=== PATIENT | female | born 1950 | race Caucasian/White ===

== ENCOUNTER → 2016-06-16 | Outpatient (CLI) | payer OTHER ==
[~2016-06-16] MED LIST: ALPRAZOLAM; ASPIRIN; ATENOLOL; CLARITIN10 MG; COUMADIN; FLAX SEED OIL1000 MG; FLONASE16 GM; HCTZ; KCL; LASIX; LEXAPRO; NORVASC; POSTURE600 MG; PRILOSEC; ZETIA
[2016-06-16 12:22] LABS: INR 2.2; PROTHROMBIN TIME (PATIENT) 23.6 SECONDS (9.6-11.5)
== END | disposition home or self-care (01) ==
LOC: CLAB 11:14
PROVIDERS: Internal Medicine Cardiovascular Disease
DX: Z48.812 Encounter for surgical aftercare following surgery on the circulatory system (principal); Z95.2 Presence of prosthetic heart valve
CPT/HCPCS: 36415; 85610

== ENCOUNTER → 2016-06-30 | Outpatient (CLI) | payer OTHER ==
[2016-06-30 11:40] LABS: PROTHROMBIN TIME (PATIENT) 58.9 SECONDS (9.6-11.5)
[2016-06-30 11:41] LABS: INR 5.3
== END | disposition home or self-care (01) ==
LOC: CLAB 10:00
PROVIDERS: Internal Medicine Cardiovascular Disease
DX: Z51.81 Encounter for therapeutic drug level monitoring (principal); Z95.2 Presence of prosthetic heart valve; Z79.01 Long term (current) use of anticoagulants
CPT/HCPCS: 36415; 85610

== ENCOUNTER → 2016-07-10 | Outpatient (CLI) | payer OTHER ==
[2016-07-10 11:25] LABS: INR 2.9; PROTHROMBIN TIME (PATIENT) 32.1 SECONDS (9.6-11.5)
== END | disposition home or self-care (01) ==
LOC: CLAB 10:34
PROVIDERS: Internal Medicine Cardiovascular Disease
DX: Z48.812 Encounter for surgical aftercare following surgery on the circulatory system (principal); Z95.2 Presence of prosthetic heart valve
CPT/HCPCS: 36415; 85610

== ENCOUNTER → 2016-08-11 | Outpatient (CLI) | payer OTHER ==
[2016-08-11 10:09] LABS: PROTHROMBIN TIME (PATIENT) 44.4 SECONDS (9.6-11.5)
== END | disposition home or self-care (01) ==
LOC: CLAB 09:38
PROVIDERS: Internal Medicine Cardiovascular Disease
DX: Z48.812 Encounter for surgical aftercare following surgery on the circulatory system (principal); Z95.2 Presence of prosthetic heart valve
CPT/HCPCS: 36415; 85610

== ENCOUNTER → 2016-08-21 | Outpatient (CLI) | payer OTHER ==
[2016-08-21 10:12] LABS: INR 3.8; PROTHROMBIN TIME (PATIENT) 42.2 SECONDS (9.6-11.5)
== END | disposition home or self-care (01) ==
LOC: CLAB 09:30
PROVIDERS: Internal Medicine Cardiovascular Disease
DX: Z48.812 Encounter for surgical aftercare following surgery on the circulatory system (principal); Z95.2 Presence of prosthetic heart valve
CPT/HCPCS: 36415; 85610

== ENCOUNTER → 2016-09-07 | Outpatient (CLI) | payer OTHER ==
[2016-09-07 10:33] LABS: INR 3.7; PROTHROMBIN TIME (PATIENT) 41.2 SECONDS (9.6-11.5)
== END | disposition home or self-care (01) ==
LOC: CLAB 09:57
PROVIDERS: Internal Medicine Cardiovascular Disease
DX: Z51.81 Encounter for therapeutic drug level monitoring (principal); Z95.2 Presence of prosthetic heart valve; Z79.01 Long term (current) use of anticoagulants
CPT/HCPCS: 36415; 85610

== ENCOUNTER → 2016-09-14 | Outpatient (CLI) | payer OTHER ==
[2016-09-14 09:52] LABS: INR 3.4
== END | disposition home or self-care (01) ==
LOC: CLAB 09:08
PROVIDERS: Internal Medicine Cardiovascular Disease
DX: Z51.81 Encounter for therapeutic drug level monitoring (principal); Z95.2 Presence of prosthetic heart valve; Z79.01 Long term (current) use of anticoagulants
CPT/HCPCS: 36415; 85610

== ENCOUNTER → 2016-09-28 | Outpatient (CLI) | payer OTHER ==
[2016-09-28 11:48] LABS: INR 2.9; PROTHROMBIN TIME (PATIENT) 31.5 SECONDS (10.0-11.7)
== END | disposition home or self-care (01) ==
LOC: CLAB 10:26
PROVIDERS: Internal Medicine Cardiovascular Disease
DX: Z51.81 Encounter for therapeutic drug level monitoring (principal); Z95.2 Presence of prosthetic heart valve; Z79.01 Long term (current) use of anticoagulants
CPT/HCPCS: 36415; 85610

== ENCOUNTER → 2016-10-12 | Outpatient (CLI) | payer OTHER ==
[2016-10-12 10:35] LABS: INR 3.1; PROTHROMBIN TIME (PATIENT) 33.4 SECONDS (10.0-11.7)
== END | disposition home or self-care (01) ==
LOC: CLAB 10:00
PROVIDERS: Internal Medicine Cardiovascular Disease
DX: Z51.81 Encounter for therapeutic drug level monitoring (principal); Z95.2 Presence of prosthetic heart valve; Z79.01 Long term (current) use of anticoagulants
CPT/HCPCS: 36415; 85610

== ENCOUNTER → 2016-11-10 | Outpatient (CLI) | payer MEDICARE, OTHER ==
[2016-11-10 10:42] LABS: INR 2.4; PROTHROMBIN TIME (PATIENT) 26.5 SECONDS (10.0-11.7)
== END | disposition home or self-care (01) ==
LOC: CLAB 10:06
PROVIDERS: Internal Medicine Cardiovascular Disease
DX: Z51.81 Encounter for therapeutic drug level monitoring (principal); Z79.01 Long term (current) use of anticoagulants; Z95.2 Presence of prosthetic heart valve
CPT/HCPCS: 36415; 85610

== ENCOUNTER → 2016-11-17 | Outpatient (CLI) | payer MEDICARE, OTHER ==
[2016-11-17 12:25] LABS: INR 2.7; PROTHROMBIN TIME (PATIENT) 29.7 SECONDS (10.0-11.7)
== END | disposition home or self-care (01) ==
LOC: CLAB 11:15
PROVIDERS: Internal Medicine Cardiovascular Disease
DX: Z51.81 Encounter for therapeutic drug level monitoring (principal); Z95.2 Presence of prosthetic heart valve; Z79.01 Long term (current) use of anticoagulants
CPT/HCPCS: 36415; 85610

== ENCOUNTER → 2016-12-01 | Outpatient (CLI) | payer MEDICARE, OTHER ==
[2016-12-01 11:01] LABS: INR 2.3; PROTHROMBIN TIME (PATIENT) 25.4 SECONDS (10.0-11.7)
== END | disposition home or self-care (01) ==
LOC: CLAB 10:08
PROVIDERS: Internal Medicine Cardiovascular Disease
DX: Z51.81 Encounter for therapeutic drug level monitoring (principal); Z95.2 Presence of prosthetic heart valve
CPT/HCPCS: 36415; 85610

== ENCOUNTER → 2016-12-07 | Outpatient (CLI) | payer MEDICARE, OTHER ==
[2016-12-07 10:39] LABS: INR 3.7
[2016-12-07 10:40] LABS: PROTHROMBIN TIME (PATIENT) 40.7 SECONDS (10.0-11.7)
== END | disposition home or self-care (01) ==
LOC: CLAB 09:49
PROVIDERS: Internal Medicine Cardiovascular Disease
DX: Z51.81 Encounter for therapeutic drug level monitoring (principal); Z95.2 Presence of prosthetic heart valve; Z79.01 Long term (current) use of anticoagulants
CPT/HCPCS: 36415; 85610

== ENCOUNTER → 2016-12-15 | Outpatient (CLI) | payer MEDICARE, OTHER ==
[2016-12-15 11:35] LABS: INR 3.1; PROTHROMBIN TIME (PATIENT) 33.5 SECONDS (10.0-11.7)
== END | disposition home or self-care (01) ==
LOC: CLAB 10:29
PROVIDERS: Internal Medicine Cardiovascular Disease
DX: Z48.812 Encounter for surgical aftercare following surgery on the circulatory system (principal); Z95.2 Presence of prosthetic heart valve
CPT/HCPCS: 36415; 85610